=== PATIENT | female | born 1990 | race African-American/Black ===

== ENCOUNTER 2016-08-28 18:01 | Emergency (ER) ==
[2016-08-28 19:26] LABS: URINE SOURCE CLEAN CATCH
[2016-08-28 19:32] LABS: BILIRUBIN URINE NEGATIVE (NEGATIVE); BLOOD URINE 4+ (NEGATIVE); CLARITY CLEAR (CLEAR); COLOR AMBER; GLUCOSE URINE NEGATIVE (NEGATIVE); LEUKOCYTES URINE 1+ (NEGATIVE); NITRITE URINE NEGATIVE (NEGATIVE); PH URINE 6.5; PROTEIN URINE 2+(100 mg/dL) mg/dL (NEGATIVE); UROBILINOGEN URINE 4+(12 mg/dL)
[2016-08-28 19:36] LABS: MANUAL DIFF NEEDED? NO
[2016-08-28 19:37] LABS: BASO% 0.3 % (0.0-0.8); EOS# 0.05 X1000 (0.0-0.7); EOS% 0.8 % (0.0-10.0); HEMATOCRIT 40.4 % (37.0-47.0); HEMOGLOBIN 13.4 g/dL (12.0-16.0); IMM GRAN# 0.01 X1000 (0.0-0.04); IMM GRAN% 0.2 % (0.0-0.5); LYMPH# 0.87 X1000 (1.2-3.4); LYMPH% 13.1 % (20.5-51.1); MCH 26.9 PG (27-31); MCHC 33.2 g/dL (33-37); MONO# 0.26 X1000 (0.11-0.59); MONO% 3.9 % (1.7-9.3); MPV 9.9 FL (7.4-10.4); NEUT% 81.7 % (42.2-75.2); PLT 301 X1000 (130-400); RBC 4.99 XMIL (4.2-5.4)
[2016-08-28] MEDS ORDERED: ZOFRAN ODT PO ONE (19:43)
[2016-08-28] MEDS ORDERED: MORPHINE IM ONE (19:43)
[2016-08-28 19:48] LABS: URINE CULTURE PL NEEDED? YES; URINE EPITHELIAL CELLS <10 /HPF (<10); URINE RBC TNTC /HPF (<10)
--- NOTE | 2016-08-28 19:48 | PROVIDER DOCUMENTATION ---
HPI-Female /OB/Breast - General Chief Complaint: Female Stated Complaint: FEMALE Time Seen by Provider: 08/28/16 19:35 Source: reports: patient Allergies/Adverse Reactions: Patient Allergies Allergy/AdvReac Type Severity Reaction Status Date / Time Penicillins Allergy ANAPHYLAXIS Verified 08/28/16 19:09 - History of Present Illness-Female /OB Nature of Presenting Problem: 25 y/o BF c/o vaginal bleeding, suprapubic cramping, back pain x 1 day. Pt states female; no hx of metromenorrhagia and no hx of using OCPs or other types of control. States filled up 5 pads since 9 PM last night. Pt reports worsening cramping. Denies . States passing clots. Denies vaginal d/c or urinary sxs. Review of Systems - Adult - REVIEW OF SYSTEMS - ADULT Constitutional: reports: no symptoms reported. denies: chills, fever Eyes: reports: no symptoms reported. denies: blurred vision, double vision Ears, Nose, Mouth & Throat: reports: no symptoms reported. denies: ear pain, nose pain Cardiovascular: reports: no symptoms reported. denies: chest pain, palpitations Respiratory: reports: no symptoms reported. denies: dyspnea on exertion, shortness of breath Gastrointestinal: reports: see HPI, abdominal pain. denies: constipation, diarrhea, nausea, vomiting Genitourinary: reports: see HPI, other. denies: dysuria, frequency Musculoskeletal: reports: no symptoms reported. denies: joint pain, joint swelling Integumentary: reports: no symptoms reported. denies: nail changes, rash Neurological: reports: no symptoms reported. denies: numbness, paresthesia Psychiatric: reports: no symptoms reported Endocrine: reports: no symptoms reported. denies: cold intolerance, heat intolerance Hematologic/Lymphatic: reports: no symptoms reported. denies: easy bruising, prolonged bleeding Allergic/Immunologic: reports: no symptoms reported All Other Systems: Reviewed and Negative Past History - Adult - PAST MEDICAL HISTORY-ADULT Review of Records: reports: Nursing Assessment Review, Medications Reviewed Major Childhood Illnesses: reports: denies history - PRIOR SURGERIES/PROCEDURES Surgical/Procedure History: reports: none - IMMUNIZATION STATUS Childhood Immunizations: See Nurse Assessment Flu Vaccine: See Nurse Assessment - FAMILY HISTORY Family History: reviewed, not pertinent Physical Exam-General - PHYSICAL EXAM-ADULT Initial Vital Signs Reviewed: Yes - CONSTITUTIONAL General Appearance: alert, moderate distress - EYES Eyes: pink conjunctivae - HEAD, EARS, NOSE, MOUTH & THROAT HENMT: normocephalic/atraumatic - NECK Neck: normal inspection - RESPIRATORY Respiratory: lungs clear, normal breath sounds. negative: crackles, rales, rhonchi, stridor, wheezing - CARDIOVASCULAR Cardiovascular: tachycardia (borderline). negative: regular rate, rhythm, bradycardia - GASTROINTESTINAL (ABDOMEN) Abdominal Exam: normal bowel sounds, soft, tenderness (mild, generalized. moderate suprapubic tenderness). negative: guarding, rigid, rebound, McBurney' s point tenderness, Srivastava's sign - MUSCULOSKELETAL Back Exam: no CVA tenderness, other (TTP bilat low back) Extremity: normal gait. negative: abnormal NV exam - SKIN Integumentary: normal color, normal turgor, warm/dry - NEUROLOGIC Neurologic: negative: aphasia - PSYCHIATRIC Psych/Mental Status: normal mood/affect, normal thought content, normal thought process, oriented x 3 Progress - PLAN OF CARE/RESULTS Progress/Plan/Lab Results: Laboratory Tests 08/28/16 08/28/16 08/28/16 19:11 19:11 19:25 WBC 6.64 RBC 4.99 Hgb 13.4 Hct 40.4 MCV 81.0 MCH 26.9 L MCHC 33.2 RDW Std Deviation 14.3 Plt Count 301 MPV 9.9 Immature Gran % (Auto) 0.2 Neut % (Auto) 81.7 H Lymph % (Auto) 13.1 L [place] % (Auto) 3.9 Eos % (Auto) 0.8 Baso % (Auto) 0.3 Immature Gran # (Auto) 0.01 Neut # (Auto) 5.43 Lymph # (Auto) 0.87 L [place] # (Auto) 0.26 Eos # (Auto) 0.05 Baso # (Auto) 0.02 Urine Source CLEAN CATCH Urine Color DAVID Urine Clarity CLEAR Urine pH 6.5 Ur Specific [place] 1.020 Urine Protein 2+(100 mg/dL) A Urine Ketones TRACE Urine Blood 4+ Urine Nitrite NEGATIVE Urine Bilirubin NEGATIVE Urine Urobilinogen 4+(12 mg/dL) Urine Microscopic RBC TNTC A Urine WBC 1+ A Urine Microscopic WBC 10-20 A Ur Epithelial Cells <10 Urine Bacteria 1+ Urine Glucose NEGATIVE Urine Test NEGATIVE Orders Category Date Time Status CBC WITH DIFF [HEME] Stat Lab 08/28/16 19:25 Completed TEST-URINE [PREG] Stat Lab 08/28/16 19:11 Completed UA [URINALYSIS PL W/POSS RFLX CULT] [URINALYSIS] Stat Lab 08/28/16 19:11 Completed URINE CULTURE [RM] Routine Lab 08/28/16 19:48 Completed Morphine Med 08/28/16 19:43 Discontinued 4 mg IM NOW ONE Ondansetron Odt [Zofran Odt] Med 08/28/16 19:43 Discontinued 4 mg PO NOW ONE Sulfamethoxazole/Tmp D.s. [Septra Ds] Med 08/28/16 20:09 Discontinued 1 each PO NOW ONE Vital Signs Temp Pulse Pulse Pulse Resp BP BP 08/28/16 20:40 100.2 F H 82 20 112/78 08/28/16 18:19 105 H 107 H 110/083 08/28/16 18:11 98.2 F 105 H 18 118/091 BP Pulse Ox 08/28/16 20:40 100 08/28/16 18:19 113/086 08/28/16 18:11 99 Penicillins Allergy (Verified 08/28/16 19:09) ANAPHYLAXIS Acetaminophen/Diphenhydramine [Percogesic Extra Str Caplet] 1 each PO Q4-6H PRN PRN #10 tablet 08/28/16 Medroxyprogesterone Acetate [Provera] 10 mg PO DAILY #7 tablet 08/28/16 Phenazopyridine HCl [Pyridium] 100 mg PO TID #6 tablet 08/28/16 Sulfamethoxazole/Trimethoprim [Bactrim Ds Tablet] 1 each PO BID #10 tablet 08/[address] Pierre and he agreed with POC and d/c. Discussed f/u with pt. Departure - Departure Time of Disposition Order: 19:59 DIAGNOSIS: Vaginal bleeding UTI (urinary tract infection) Qualifiers: Urinary tract infection type: acute cystitis Hematuria presence: with hematuria Qualified Code(s): N30.01 - Acute cystitis with hematuria DIAGNOSIS: (Ruled Out): Anemia Disposition: HOME 01 Certified Medical Emergency: Emergent Condition: Stable Additional Instructions: Follow up with specialist for further management and recheck. Take medications as directed. Return if symptoms get worse. ED Follow Up Instructions: You have been treated by a care provider in the Emergency Department. These instructions are being provided to you so you can have an understanding of how to care for yourself upon discharge. Upon discharge from the Emergency Department, you are responsible for making arrangements for follow-up care by a physician of your choice. Take all prescribed medications as directed. Return to the Emergency Department immediately for any new or worsening symptoms. You may call the Physician Referral phone number at [phone] to obtain a list of Physicians who are taking new patients. Prescriptions: Sulfamethoxazole/Trimethoprim [Bactrim Ds Tablet] 1 each PO BID #10 tablet Acetaminophen/Diphenhydramine [Percogesic Extra Str Caplet] 1 each PO Q4-6H PRN PRN #10 tablet PRN Reason: Pain Medroxyprogesterone Acetate [Provera] 10 mg PO DAILY #7 tablet Phenazopyridine HCl [Pyridium] 100 mg PO TID #6 tablet Referrals: None,PCP [Primary Care Provider] - Jamie Alvarez MD [STAFF PHYSICIAN] - Forms: Return to School/Parent Work Instructions: Acetaminophen; Diphenhydramine oral caplet, capsule, or tablet, Phenazopyridine tablets, Urinary Tract Infection, [id number], Medroxyprogesterone tablets, Sulfamethoxazole; Trimethoprim, SMX-TMP tablets Attestation - Physician/ Mid-level Attestation Patient care was provided by Mid-level provider (SPEAR FISHER/PA):: Yes Mid-level provider:: Marija Daily Mid-level documentation review:: The Mid-level provider documentation, treatment plan and medical decision making was reviewed by the physician who agrees with all treatment and medical decision making by the MLP.
[2016-08-28] MEDS ORDERED: SEPTRA DS PO ONE (20:09)
[2016-08-28 20:41] VITALS: BP 112/78
== END 2016-08-28 20:40 | disposition home or self-care (01) ==
LOC: P.ED 18:01
DX: N93.9 Abnormal uterine and vaginal bleeding, unspecified (principal); N30.01 Acute cystitis with hematuria; R10.30 Lower abdominal pain, unspecified; M54.5 Low back pain; R10.84 Generalized abdominal pain
CPT/HCPCS: 81001; 81025; 85025; 87088; 96372; J2270